=== PATIENT | female | born 1995 | race Caucasian/White ===

== ENCOUNTER 2022-08-21 16:34 | Emergency (ER) | payer MEDICAID, OTHER ==
[~2022-08-21] VITALS: Ht 165.1 cm; Wt 82.6 kg
[2022-08-21 17:26] VITALS: BP 126/71
[2022-08-21 18:09] LABS: APPEARANCE,URINE CLEAR (CLEAR); BILIRUBIN,URINE NEGATIVE (NEGATIVE); BLOOD, URINE NEGATIVE (NEGATIVE); COLOR,URINE YELLOW (YELLOW); LEUKOCYTE ESTERASE ,URINE NEGATIVE (NEGATIVE); NITRITE, URINE NEGATIVE (NEGATIVE); UGLUCOSE NEGATIVE (NEGATIVE)
[2022-08-21 18:22] LABS: BASOPHILS % (AUTO) 0.6 % (0.0-2.0); EOSINOPHILS # (AUTO) 0.1 K/uL (0-0.4); EOSINOPHILS % (AUTO) 2.2 % (0.0-4.0); HEMATOCRIT 38.5 % (36-48); HEMOGLOBIN 12.9 g/dL (12.0-16.0); LYMPHOCYTES # (AUTO) 2.6 K/uL (2.5-16.5); LYMPHOCYTES % (AUTO) 38.4 % (20.5-51.1); MEAN CORPUSCULAR HEMOGLOBIN 29 pg (27-31); MEAN CORPUSCULAR HGB CONC 34 g/dL (33-37); MEAN CORPUSCULAR VOLUME 87.1 fL (80-94); MONOCYTES # (AUTO) 0.7 K/uL (0.8-1.0); MONOCYTES % (AUTO) 10.5 % (1.7-9.3); NEUTROPHILS # (AUTO) 3.2 K/uL (1.8-7.7); NEUTROPHILS % (AUTO) 48.3 % (42.2-75.2); PLATELET COUNT (AUTO) 234 K/uL (140-450); RED BLOOD CELL COUNT(AUTO) 4.42 MIL/uL (4.20-5.40); RED CELL DISTRIBUTION WIDTH 13.1 % (11.6-13.7); WHITE BLOOD COUNT (AUTO) 6.6 K/uL (4.8-10.8)
[2022-08-21 18:36] LABS: ANION GAP 13.3 (8-16); CARBON DIOXIDE 26.1 mmol/L (21-32); CREATININE 0.7 mg/dL (0.6-1.3); POTASSIUM 4.4 mmol/L (3.5-5.1)
--- NOTE | 2022-08-21 19:31 | NUR ---
Patient discharged with v/s stable. Written and verbal after care instructions given and explained. Patient verbalized understanding. Ambulatory with steady gait. All questions addressed prior to discharge. Advised to follow up with PMD.
== END 2022-08-21 19:31 | disposition home or self-care (01) ==
LOC: MED 16:34
DX: K62.5 Hemorrhage of anus and rectum (principal)
CPT/HCPCS: 36415; 80048; 81003; 85025; 99283

== ENCOUNTER 2022-10-15 08:11 | Emergency (ER) | payer OTHER ==
[~2022-10-15] VITALS: Ht 165.1 cm; Wt 76.7 kg
[2022-10-15 08:15] VITALS: BP 121/84
--- NOTE | 2022-10-15 08:24 | NUR ---
Patient ambulated to bed 9.
--- NOTE | 2022-10-15 08:31 | NUR ---
Patient being evaluated by physician at bedside.
[2022-10-15 08:57] LABS: BASOPHILS % (AUTO) 0.4 % (0.0-2.0); EOSINOPHILS # (AUTO) 0.2 K/uL (0-0.4); HEMATOCRIT 34.5 % (36-48); HEMOGLOBIN 11.6 g/dL (12.0-16.0); LYMPHOCYTES % (AUTO) 43.4 % (20.5-51.1); MEAN CORPUSCULAR HEMOGLOBIN 29 pg (27-31); MEAN CORPUSCULAR HGB CONC 34 g/dL (33-37); MEAN CORPUSCULAR VOLUME 86.6 fL (80-94); MONOCYTES # (AUTO) 0.6 K/uL (0.8-1.0); MONOCYTES % (AUTO) 8.2 % (1.7-9.3); NEUTROPHILS # (AUTO) 3.1 K/uL (1.8-7.7); PLATELET COUNT (AUTO) 228 K/uL (140-450); RED BLOOD CELL COUNT(AUTO) 3.99 MIL/uL (4.20-5.40); RED CELL DISTRIBUTION WIDTH 13.5 % (11.6-13.7)
[2022-10-15 09:08] LABS: ANION GAP 9.4 (8-16); CARBON DIOXIDE 28.8 mmol/L (21-32); CREATININE 0.6 mg/dL (0.6-1.3); POTASSIUM 4.2 mmol/L (3.5-5.1)
[2022-10-15 10:40] VITALS: BP 121/84
== END 2022-10-15 10:40 | disposition home or self-care (01) ==
LOC: MED 08:11
DX: R07.9 Chest pain, unspecified (principal)
CPT/HCPCS: 36415; 71045; 80048; 84484; 84703; 85025; 93005; 99285

== ENCOUNTER 2023-07-24 13:44 | Emergency (ER) | payer OTHER ==
[~2023-07-24] VITALS: Ht 162.6 cm; Wt 76.2 kg
[2023-07-24 14:15] VITALS: BP 102/67; PULSE 84; RESP 19; TEMP 97.7; O2SAT 98
[2023-07-24] MEDS: KETOROLAC 30 MG/ML VIAL IM ONE (15:23)
[2023-07-24] MEDS ORDERED: NAPR-1704 PO (15:24)
[2023-07-24] MEDS ORDERED: CAPS1ADH5 TP (15:24)
[2023-07-24] MEDS ORDERED: CYCL-711 PO (15:24)
[2023-07-24 15:42] VITALS: BP 112/68; PULSE 78; RESP 19; TEMP 97.7; O2SAT 98
== END 2023-07-24 15:42 | disposition home or self-care (01) ==
LOC: MED 13:44
DX: S39.012A Strain of muscle, fascia and tendon of lower back, initial encounter (principal); Z79.899 Other long term (current) drug therapy; Z98.51 Tubal ligation status; X58.XXXA Exposure to other specified factors, initial encounter; Y92.89 Other specified places as the place of occurrence of the external cause; Y93.89 Activity, other specified; Y99.8 Other external cause status
CPT/HCPCS: 81002; 81025; 96372; 99283; J1885